=== PATIENT | male | born 1950 | race Caucasian/White ===

== ENCOUNTER 2022-07-29 11:43 | Outpatient (CLI) | payer MEDICARE, OTHER, SELFPAY ==
[2022-07-29 13:27] LABS: Chloride* 104 mmol/L (96-114)
[2022-07-29 13:28] LABS: Basophils Absolute Auto 0.04 K/uL (0.00-0.30); Basophils Percent Auto 0.6 % (0.0-3.0); Eosinophils Absolute Auto 0.19 K/uL (0.00-0.50); Eosinophils Percent Auto 2.9 % (0.0-7.0); Hematocrit 45.7 % (37.0-53.0); Immature Granulocytes Abs Auto 0.01 K/uL (0.00-0.30); Immature Granulocytes Pct Auto 0.2 %; Lymphocytes Percent Auto 19.1 % (20-44); Mean Corpuscular HGB Conc 33 gm/dL (32-36); Mean Corpuscular Hemoglobin 29 pg (26-34); Mean Corpuscular Volume 87 fL (80-100); Monocytes Percent Auto 8.2 % (0.0-11.0); Neutrophils Absolute Auto 4.47 K/uL (1.7-7.0); Platelet Count* 254 K/uL (140-440); Potassium* 4.5 mmol/L (3.6-5.1); RDW Coefficient of Variation % 13.4 % (11.5-15.5); Red Blood Count 5.27 m/uL (4.30-5.90); Sodium* 139 mmol/L (135-149); White Blood Count* 6.48 K/uL (4.50-11.00)
[2022-07-29 13:30] LABS: Carbon Dioxide* 29 mmol/L (20-32); Cholesterol* 213 mg/dL (90-199); Creatinine* 0.9 mg/dL (0.5-1.5); Estimated Glomerular Filt Rate 90 ml/min
[2022-07-29 13:31] LABS: Blood Urea Nitrogen* 23 mg/dL (7-30); Glucose* 121 mg/dL (60-115); HDL Cholesterol* 37 mg/dL (>=40); LDL Cholesterol Calculated 111 mg/dL (<100); Triglycerides* 324 mg/dL (40-149)
[2022-07-29 13:36] LABS: Slide Review Reflex No
[2022-07-29 14:02] LABS: PSA Screen* 2.57 ng/mL (0.10-4.00)
== END 2022-07-29 11:44 | disposition home or self-care (01) ==
PROVIDERS: PCP Family Medicine; Visit Provider Family Medicine
DX: Z01.818 Encounter for other preprocedural examination (principal); I10 Essential (primary) hypertension; E55.9 Vitamin D deficiency, unspecified; E78.5 Hyperlipidemia, unspecified; Z12.5 Encounter for screening for malignant neoplasm of prostate
CPT/HCPCS: 80048; 80061; 84153; 85025

== ENCOUNTER 2022-08-11 08:16 | Day surgery (SDC) | payer MEDICARE, OTHER, SELFPAY ==
--- NOTE | 2022-08-11 08:31 | SUR.PREOP ---
Patient provided home covid negative results to RN.
--- NOTE | 2022-08-11 08:32 | SUR.PREOP ---
The eye drops brought by the patient (Ketorolac and Prednisolone) are examined and I have determined they are labeled by the patient's pharmacy for this patient as prescribed by the surgeon. The bottles are intact, recently obtained and appear to be correct.
[2022-08-11] MEDS: TETRACAINE 0.5% OPHTH 1 DROP EYE-RIGHT ×2 (08:33→08:42)
[2022-08-11 08:36] VITALS: BMI 37.6
[2022-08-11] MEDS: KETOROLAC OPHTH 0.5% 1 DROP EYE-RIGHT ×2 (08:39→08:49)
[2022-08-11 08:45] VITALS: BP 141/80; PULSE 70; RESP 16; TEMP 37; O2SAT 96
[2022-08-11] MEDS: SODIUM CHLORIDE 0.9 % (FLUSH) 10 ML SYRINGE IVF (08:55)
[2022-08-11] MEDS: TETRACAINE 0.5% OPHTH 2 DROP EYE-RIGHT (09:21)
[2022-08-11] MEDS: BALANCED SALT IRRIG SOLN 15 ML EYE-RIGHT (09:26)
--- NOTE | 2022-08-11 09:36 | W.ANESCHARGE ---
Anesthesia Charges Start Date/Time Anesthesia Start Date: 08/11/22 Anesthesia Start Time: 09:18 Stop Date/Time Anesthesia Stop Date: 08/11/22 Anesthesia Stop Time: 09:51 Summary Extremes of Age - Over 70 or under 1: MDA
--- NOTE | 2022-08-11 09:40 | W.ANESCHARGE ---
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
--- NOTE | 2022-08-11 09:54 | W.PM.OPTPROC ---
Procedure Note Date of procedure: 08/11/22 Will [facility] bill your pro fee for this procedure?: Yes Procedure Description: SURGEON: Karma Joshi MD PREOPERATIVE DIAGNOSIS: Nuclear sclerotic cataract, right eye. POSTOPERATIVE DIAGNOSIS: Nuclear sclerotic cataract, right eye. NAME OF OPERATION: Phacoemulsification of cataract with posterior chamber intraocular lens implantation in the right eye. ANESTHESIA: Topical. ESTIMATED BLOOD LOSS: Less than 2 cc. COMPLICATIONS: None. PATHOLOGY SPECIMEN: None. INDICATIONS: See consult note for details. The risks, benefits and alternatives of the procedure were explained to the patient, who elected to proceed and signed informed consent to do so. PROCEDURE: The patient was brought to the pre-holding area where the right eye was identified as the operative eye. I placed my initials above this eye. The patient received eye drops consisting of 0.5% tetracaine, 1% tropicamide, 10% phenylephrine, and 0.5% ketorolac. The patient was then brought to the operating room where the right eye was again identified as the operative eye. The eye was prepped with Betadine and draped in the usual sterile ophthalmic fashion. A #15 super-sharp blade was used to create a paracentesis site. 1% non-preserved intracameral lidocaine was injected into the anterior chamber. Endocoat was injected into the anterior chamber. A 2.4 mm keratome was used to create a three-plane self-sealing incision 1 mm anterior to the temporal limbus. A cystotome was used to create an anterior capsular leaflet. The Utrata forceps were used to extend this to form a continuous curvilinear capsulorrhexis. Hydrodissection was performed. The cataract was removed with phacoemulsification using the [id number] technique. The irrigation and aspiration tip was used to remove the remaining cortex. Healon was injected into the capsular bag. An JEREMI ZCB00 intraocular lens of 21.0 diopters was injected into the capsular bag. The irrigation and aspiration tip was used to remove the remaining viscoelastic. Balanced salt solution on a cannula was used to hydrate the wound, and the wound was found to be watertight. The pupil was noted to be round. DISPOSITION: The patient was taken to the recovery room and discharged to home in stable condition. The patient was instructed to call me or go to the emergency department with any sudden change, including dramatic loss of vision, severe pain in the eye or eyebrow region, nausea, or vomiting. The patient will follow up in the clinic tomorrow morning. Surgeon: Karma Joshi MD
[2022-08-11 09:55] VITALS: BP 151/91; PULSE 74; RESP 16; TEMP 36.7; O2SAT 95
== END 2022-08-11 10:12 | disposition home or self-care (01) ==
PROVIDERS: PCP Family Medicine; Visit Provider Ophthalmology
PROC: (CPT 66984; principal; 2022-08-11 08:15)
DX: H25.11 Age-related nuclear cataract, right eye (principal)
CPT/HCPCS: 66984; 00142; 99100; A9270; J2250; J3010; V2632

== ENCOUNTER 2022-08-25 08:10 | Day surgery (SDC) | payer MEDICARE, OTHER, SELFPAY ==
[2022-08-25] MEDS: KETOROLAC OPHTH 0.5% 1 DROP EYE-LEFT ×2 (08:24→08:30)
[2022-08-25] MEDS: TETRACAINE 0.5% OPHTH 1 DROP EYE-LEFT ×2 (08:24→08:30)
--- NOTE | 2022-08-25 08:37 | SUR.PREOP ---
Patient provided home covid negative results to RN.
[2022-08-25 08:38] VITALS: BMI 37.7
[2022-08-25 08:41] VITALS: BP 130/80; PULSE 70; RESP 16; TEMP 36.9; O2SAT 96
[2022-08-25] MEDS: SODIUM CHLORIDE 0.9 % (FLUSH) 10 ML SYRINGE IVF (08:43)
[2022-08-25] MEDS: TETRACAINE 0.5% OPHTH 2 DROP EYE-BOTH (09:20)
[2022-08-25] MEDS: BALANCED SALT IRRIG SOLN 15 ML EYE-LEFT (09:23)
--- NOTE | 2022-08-25 09:23 | W.ANESCHARGE ---
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
[2022-08-25 09:45] VITALS: BP 139/77; PULSE 67; RESP 16; TEMP 36.7; O2SAT 98
--- NOTE | 2022-08-25 10:30 | P.OPTPRC_ITS ---
Procedure Note Date of procedure: 08/25/22 Will [facility] bill your pro fee for this procedure?: Yes Procedure Description: SURGEON: Karma Joshi MD PREOPERATIVE DIAGNOSIS: Nuclear sclerotic cataract, left eye. POSTOPERATIVE DIAGNOSIS: Nuclear sclerotic cataract, left eye. NAME OF OPERATION: Phacoemulsification of cataract with posterior chamber intraocular lens implantation in the left eye. ANESTHESIA: Topical. ESTIMATED BLOOD LOSS: Less than 2 cc. COMPLICATIONS: None. PATHOLOGY SPECIMEN: None. INDICATIONS: See consult note for details. The risks, benefits and alternatives of the procedure were explained to the patient, who elected to proceed and sign ed informed consent to do so. PROCEDURE: The patient was brought to the pre-holding area where the left eye was identified as the operative eye. I placed my initials above this eye. The patient received eye drops consisting of 0.5% tetracaine, 1% tropicamide, 10% phenylephrine, and 0.5% ketorolac. The patient was then brought to the operating room where the left eye was again identified as the operative eye. The eye was prepped with Betadine and draped in the usual sterile ophthalmic fashion. A #15 super-sharp blade was used to create a paracentesis site. 1% non-preserved intracameral lidocaine was injected into the anterior chamber. Endocoat was injected into the anterior chamber. A 2.4 mm keratome was used to create a three-plane self-sealing incision 1 mm anterior to the temporal limbus. A cystotome was used to create an anterior capsular leaflet. The Utrata forceps were used to extend this to form a continuous curvilinear capsulorrhexis. Hydrodissection was performed. The cataract was removed with phacoemulsification using the [id number]-[id number] technique. The irrigation and aspiration tip was used to remove the remaining cortex. Healon was injected into the capsular bag. An JEREMI ZCB00 intraocular lens of 21.0 diopters was injected into the capsular bag. The irrigation and aspiration tip was used to remove the remaining viscoelastic. Balanced salt solution on a cannula was used to hydrate the wound, and the wound was found to be watertight. The pupil was noted to be round. DISPOSITION: The patient was taken to the recovery room and discharged to home in stable condition. The patient was instructed to call me or go to the emergency department with any sudden change, including dramatic loss of vision, severe pain in the eye or eyebrow region, nausea, or vomiting. The patient will follow up in the clinic tomorrow morning. Surgeon: Karma Joshi MD
== END 2022-08-25 10:08 | disposition home or self-care (01) ==
LOC: OR 08:10
PROVIDERS: PCP Family Medicine; Visit Provider Ophthalmology
PROC: (CPT 66984; principal; 2022-08-25 08:15)
DX: H25.12 Age-related nuclear cataract, left eye (principal)
CPT/HCPCS: 66984; 142; 99100; A9270; J2250; J3010; V2632

== ENCOUNTER 2024-05-25 11:56 | Emergency (ER) | payer MEDICARE, OTHER, SELFPAY ==
[2024-05-25 12:06] VITALS: BP 145/89; PULSE 67; RESP 18; TEMP 36.3; O2SAT 97; BMI 36.9
--- NOTE | 2024-05-25 12:27 | CRLHL7_ITS ---
For Patients: As a result of the Century Cures Act, medical imaging exams and procedure reports are released immediately into your electronic medical record. You may view this report before your referring provider. If you have questions, please contact your health care provider. Indication: constipation x1 week Technique: Three AP views of the abdomen. Comparison: None. Findings: Mild stool burden is seen in the ascending and descending colon. Nonobstructive bowel gas pattern. No large pneumoperitoneum. Visualized lung bases are clear. Mild degenerative changes of the bilateral hips. Mild degenerative changes of the visualized spine. Suture material is seen in the right abdomen. Impression: Mild stool burden is seen in the ascending and descending colon. Nonobstructive bowel gas pattern. Dictated by Santiago Cruz MD @ 05/25/2024 1:22:11 PM (Electronically Signed)
--- OUTSIDE RECORDS SUMMARY | 2024-05-25 12:52 | XMS_ITS | Clinical Summary ---
Author Organization [facility] Address [address] [address] Phone Care Team Providers Care 911 Emergency Services Dispatcher Name Role Phone Nick Myers MD Primary Care Provider Allergies Active Allergy Reactions Criticality Noted Date Comments Lisinopril Cough Low 10/10/2021 Medications losartan (Cozaar) 25 MG tablet Take 25 mg by mouth one time a day. Active citalopram (CeleXA) 20 MG tablet Take by mouth one time a day. Active amphetamine-dex troamphetamine (Adderall) 10 MG tablet Take 10 mg by mouth one time a day. To avoid insomnia, last daily dose should be taken no less than 6 hours before bed. Active ipratropium (Atrovent) 0.03 % nasal spray Instill 2 Sprays nasally four times a day as needed. 11/02/2023 Active losartan-hydroC HLOROthiazide (Hyzaar) 100-25 MG oral tablet Take 1 Tablet by mouth one time a day. 11/04/2023 Active Active Problems No known active problems Social History Tobacco Use Types Packs/Day Years Used Date Smoking Tobacco: Former Cigarettes Smokeless Tobacco: Never EH IP Custom IPV Answer Date Recorded Do you feel UNSAFE in any of your personal relationships with your family members or any other acquaintances? No 2022 Sex and Gender Information Value Date Recorded Sex Assigned at Not on file Legal Sex Male 10:06 AM CDT Gender Identity Not on file Sexual Orientation Not on file Obstetrics History Last Filed Vital Signs Vital Sign Reading Time Taken Comments Blood Pressure 162/102 12/28/2023 1:55 PM CDT Pulse 66 12/28/2023 1:52 PM CDT Temperature 36.9 C (98.4 F) 12/28/2023 1:52 PM CDT Respiratory Rate 17 12/28/2023 1:52 PM CDT Oxygen Saturation 96% 12/28/2023 1:52 PM CDT Inhaled Oxygen Concentration - - Weight 108.9 kg (240 lb) 03/10/2023 11:26 AM CDT Height 175.3 cm (5' 9) 03/10/2023 11:26 AM CDT Body Mass Index 35.44 03/10/2023 11:26 AM CDT Plan of Treatment Health Maintenance Due Date Last Done Comments CT Colonography 1950 Cologuard 1950 Colonoscopy 1950 Colorectal Cancer Screening 1950 FIT/FOBT 1950 MEDICARE AWV 1950 Sigmoidoscopy 1950 PERTUSSIS (Standing Order) 1967 TETANUS (Standing Order) 1967 Shingrix (Zoster recombinant ) vaccine (Standing Order) (1 of 2) 1998 Abdominal Aortic Aneurysm (A AA) Screening 2013 Pneumococcal Vaccine: 65+ yr s (Standing Order) (1 of 1 - PCV) 2013 RSV Vaccination (60+ yrs) (Abrysvo/Arexvy) (1 - 1-dose 75+ series) 2023 COVID-19 Vaccine ( - 2023-2 5 season) 2024 Influenza Vaccine Seasonal (Standing Order) (#1) 2024 HPV Vaccine (Standing Order) Aged Out No longer eligible based on patient's age to complete this topic Hepatitis B Vaccine (Standin g Order) Aged Out No longer eligible b ased on patient's age to complete this topic Insurance [facility] PRIME MEDICARE PART A & B Care Teams 911 Emergency Services Dispatcher Relationship Specialty Start Date End Date Nick Myers MD [facility] [address] [place] [address] PCP - General Family Medicine 03/10/23
--- OUTSIDE RECORDS SUMMARY | 2024-05-25 12:52 | XMS_ITS | Clinical Summary ---
Author Organization [facility] Address [place], [place] [address] Care Team Providers Care Undercoat Sprayer Name Role Phone [facility] Phys Of Primary Care Provider Un available Allergies Active Allergy Reactions Criticality Noted Date Comments Lisinopril Cough 04/07/2011 Medications Medication Sig Dispensed Refills Start Date End Date Status sildenafil (REVATIO) 20 mg tabletIndications:Mal e erectile dysfunction, unspecified Take 2-3 tablets prn 30 tablet 6 02/02/2017 Active citalopram (CELEXA) 20 mg tabletIndications:Dys thymic disorder Take 1 tablet by mouth once daily. 30 tablet 11 08/21/2018 Active losartan (COZAAR) 100 mg tabletIndications:Ess ential hypertension Take 1 tablet by mouth once daily. 90 tablet 3 11/20/2018 Active ipratropium (ATROVENT NASAL) 21 mcg (0.03 %) nasal sprayIndications:PND (post-nasal drip) Inhale 2 Sprays into affected nostril(s) 4 times daily if needed for Rhinitis. [place] dose in each nostril as needed for drainage 30 mL 12 11/02/2023 Active Active Problems Problem Noted Date Diagnosed Date Gastroesophageal reflux disease without esophagi tis 07/31/2018 Controlled substance agreement signed 12/05/2017 EKATERINA (obstructive sleep apnea) 03/21/2015 Overview (03/21/2015): Uses mouth piece Cluster headache 07/28/2012 Colon polyp 2011 Overview (01/20/2017): Colonoscopy 05/2011 polyp repeat in 5 years Colonoscopy 12/2016 polyp repeat in 5 years Vitamin D deficiency 04/07/2011 Umbilical hernia without mention of obstruction or gangrene 11/19/2008 Dysthymic disorder 07/12/2007 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) Overview (11/02/2006): Adult type Mixed hyperlipidemia Backache, unspecified Allergic rhinitis, cause unspecified Essential hypertension Erectile dysfunction Resolved Problems Problem Noted Date Diagnosed Date Resolved Date Male erectile dysfunction, unspecified 02/02/2017 07/25/2018 Unspecified essential hypertension 07/12/2007 05/09/2018 GERD (gastroesophageal reflux disease) 07/31/2018 Immunizations Name Administration Dates Next Due Amb Influenza, Inact (High-d ose) (Flu Clinic Only) 05/06/2016 HepA-HepB (Twinrix) 08/12/2009 Inactivated Polio Vaccine 11/30/1994 Influenza A (H1N1), Inactivated 06/23/2009 Influenza A (H1N1), Inactiva adria (Age >=3 Years) 06/23/2009 Influenza, High-dose Inactivated 05/06/2016,01/26 Influenza, IIV3 (Age 6-35 mos) 04/07/2011,2008,03/17/2009 Influenza, IIV3 (Age >=3 years) 03/09/20 13,03/27/2012,04/07/2011,05/14 Influenza, IIV4 06/12/2015 Meningococcal Vaccine (Menactra) 08/12/2009 Pneumococcal Poly,23-Valent (Pneumovax) 02/22/2014,07/28/2009 Pneumococcal conj 13-Valent (Prevnar 13) 06/12/2015 Td (Age >=7 Years) 07/28/2009,02/21/2004 Tdap 12/18/2012 Yellow Fever 07/15/2009 Zoster (Shingrix-RZV, recombinant) 07/13/2018 Zoster (Zostavax-ZVL, live) 04/07/2011 Family History Medical History Relation Name Comments Good Health Brother 1 Leukemia Brother 2 Allergies Child Diabetes Father Heart failure Father Hyperlipidemia Father Other Father LA Cancer Mother Kidney Hypertension Mother Malig Hyperthermia No Family History Relation Name Status Comments Brother 1 Alive Rh factor issue s Brother 2 (Age 11) Leukemia Child Father (Age 78) CHF Mother (Age 92) Old age Social History Tobacco Use Types Packs/Day Years Used Date Smoking Tobacco: Former Cigarettes 0.5 3 1 967 - 1970 Smokeless Tobacco: Never Tobacco Cessation:Counseling Given: Yes Alcohol Use Standard Drinks/Week Comments Yes 0 (1 standard drink = 0.6 oz pur e alcohol) 2x weekly PHQ-2 Answer Date Recorded PHQ-2 Score 0 08/26/2018 Social Connections Answer Date Recorded Frequency of Communication with Friends and Fami ly Not on file 11/02/2023 Sex and Gender Information Value Date Recorded Sex Assigned at Not on file Gender Identity Not on file Sexual Orientation Not on file Obstetrics History Last Filed Vital Signs Vital Sign Reading Time Taken Comments Blood Pressure 132/80 01/30/2019 10:45 AM CDT Pulse 68 01/30/2019 10:33 AM CDT Temperature 36.8 C (98.3 F) 08/29/2018 1:35 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 Respiratory Rate 14 12/12/2008 3:06 PM CDT Oxygen Saturation 96% 01/30/2019 10:33 AM CDT Inhaled Oxygen Concentration - - Weight 108 kg (238 lb) 01/30/2019 10:33 AM CDT Height 177.2 cm (5' 9.76) 01/30/2019 10:33 AM C DT Body Mass Index 34.38 01/30/2019 10:33 AM CDT Plan of Treatment Health Maintenance Due Date Last Done Comments Hepatitis C screening for ag e 18-79 1966 Medicare Wellness for age 65+ 2013 Zoster (shingles) series for age 50+ (3 of 3) 09/07/2018 07/13/2018, 04/07/2011 Depression screening for age 12+ 08/21/2019 08/21/2018, 07/26/2018, 07/26/2018, Additional history exists BMI (ht and wt on same day) for age 18+ 01/31/2020 01/30/2019, 11/13/2018, 08/29/2018, Additional history exists Colonoscopy through age 75 01/19/202201/19, 01/19/2017, 2011, Additional history exists Lipids for age 45-75 10/06/2022 10/06/2017, 03/21/2015, 05/14/2014, Additional history exists Tetanus booster 12/18/2022 12/18/2012, 0206/2009, 02/21/2004 RSV vaccine for adults or (1 - 1-dose 75+ series) 2023 COVID-19 vaccine series ( season) 2024 04/01/2022, 10/15/2021, 04/17/2021, Additional history exists Influenza for age 65+ 02/26/2024 05/06/2016 , 05/06/2016, 06/12/2015, Additional history exists Tdap Completed 12/18/2012 Pneumococcal series for age 65+ Completed 06/12/2015, 02/22/2014, 07/28/2009 Procedures Procedure Name Priority Date/Time Associated Diagnosis Comments LIPID PANEL W REFLEX MEASURED LDL Routine 10/06/2017 9:52 AM CDT Mixed hyperlipidemia COLONOSCOPY 01/19/2017 10:11 AM CDT from Last 3 Months or Most Recently Relevant to Health Maintenance Results * (ABNORMAL) LIPID PANEL W REFLEX MEASURED LDL (10/06/2017 9:52 AM CDT) CHOLESTEROL,TOTAL 224(H) 100 - 199 mg/dL 10/06/2017 4:33 PM CDT [facility] TRIGLYCERIDES 221(H) <150 mg/dL 10/06/2017 4:33 PM CDT [facility] HDL CHOLESTEROL 39(L) >40 mg/dL 8 4:33 PM CDT [facility] NON-HDL CHOLESTEROL 185(H) <145 mg/dl 10/06/2017 4:33 PM CDT [facility] CHOL/HDL RATIO 5.74(H) <4.50 10/06/2017 4:33 PM CDT [facility] LDL CHOLESTEROL 141(H) <=130 mg/dL 10/06/2017 4:33 PM CDT [facility] PROVIDER ORDERED STATUS RANDOM 10/06/2017 4:33 PM CDT [facility] Blood BLOOD SPECIMEN / Unknown Venipuncture / Unknown 10/06/2017 9:52 AM CDT 10/06/2017 9:52 AM CDT Cole Tate DO CHEMISTRY [facility] [address] [place] [address], [place] * COLONOSCOPY (01/19/2017 10:11 AM CDT) 01/19/2017 10:1 1 AM CDT Narrative Transcriptions Adalid Selby MD - 01/19/2017 12:09 PM CDT Patient Name: Chidi Reina Procedure Date: 01/19/2017 Gender: Male Date of : 1950 Admit Type: Outpatient Procedure: Colonoscopy Proceduralist: Adalid Selby MD , Desirae Fuller (Nurse) Indications/Pre-Op Diagnosis: Surveillance: Personal history ofadenomatous polyps on last colonoscopy 5 years ago, Last colonoscopy: May 2011 Medications: Fentanyl 100 micrograms IV, Midazolam 2 mgIV, The level of sedation administered wasmoderate Procedure Description: The patient had risks, benefits and alternatives explained to andgave informed consent. The patient had a stable cardiopulmonary status and judged an adequate candidate for conscious sedation. The [id number] was passed through the anus and advanced tothe cecum, identified by appendiceal orifice and ileocecal valve. The colonoscopy was performed without difficulty. The patient toleratedthe procedure well. The quality of the bowel preparation was good. The ileocecal valve, appendiceal orifice, and rectum were photographed. Complications: No immediate complications. Estimated Blood Loss & Specimen: Estimated blood loss: none. Specimen collected - Yes and sent to Laboratory Findings: The perianal and digital rectal examinations were normal. The entire examined colon appeared normal. A 5 mm polyp was found in the cecum. The polyp was sessile. The polyp was removed with a hot snare. Resection and retrieval werecomplete. Many small and large-mouthed diverticula were found in the sigmoidcolon and descending colon. The exam was otherwise without abnormality on direct and retroflexion views. Impressions/Post-Op Diagnosis: - The entire examined colon is normal. - One 5 mm polyp in the cecum, removed with a hot snare. Resected and retrieved. - Diverticulosis in the sigmoid colon and in the descending colon. - The examination was otherwise normal on direct and retroflexionviews. Recommendation: - Patient has a contact number available for emergencies. The signsand symptoms of potential delayed complications were discussed with the patient. Return to normal activities tomorrow. Written discharge instructions were provided to the patient. - Resume previous diet. - Continue present medications. - Await pathology results. - Repeat colonoscopy in 5 years for surveillance. Moderate Sedation: Moderate (conscious) sedation was administered by the endoscopy nurse and supervised by the endoscopist. The following parameters were monitored: oxygen saturation, heart rate, respiratory rate, blood pressure, adequacy of pulmonary ventilation and reponse to care. [facility] and nursing notes for moderate sedation details. Total physician intraservice time was 23 minutes. Adalid Selby MD 01/19/2017 12:06:51 PM This report has been signed electronically. Note Initiated On: 01/19/2017 10:11 AM Procedure Code(s): --- Professional --- 86414, Colonoscopy, flexible; with removalof tumor(s), polyp(s), or other lesion(s) bysnare technique Diagnosis Code(s): --- Professional --- Z86.010, Personal history of colonicpolyps D12.0, Benign neoplasm of cecum K57.30, Diverticulosis of large intestine without perforation or abscess withoutbleeding CPT copyright 2016 [employer]. All rights reserved. The codes documented in this report are preliminary and upon family sociologist reviewmay be revised to meet current compliance requirements. Scope In: 11:40:59 AM Scope Withdrawal Time 0 hours 11 minutes 34 seconds Scope Out: 12:01:48 PM Adalid Selby MD PROCEDURE ORD from Last 3 Months or Most Recently Relevant to Health Maintenance Care Teams Undercoat Sprayer Relationship Specialty Start Date End Date Choco Navarro Phys Of PCP - General 07/31/19
--- NOTE | 2024-05-25 13:51 | ED_ITS ---
HPI - General Adult General Chief complaint: Constipation Stated complaint: constipated for last week Time Seen by Provider: 05/25/24 12:00 Source: patient Mode of arrival: ambulatory Limitations: no limitations History of Present Illness HPI narrative: 73-year-old male coming in today concerned about constipation. Patient states that he has not had ?a substantive bowel movement? in a week. When I asked what that means, patient states that he might have small hard bowel movements but it is not normal for him. He denies nausea or vomiting. He has any new in the last 2 days because he is concerned about adding more things to his stomach when it is not moving properly. He is passing gas. He denies any fevers. He has been taking MiraLax for the last [address] without significant output. He complains of feeling lightheaded in the last couple days. Related Data Home Medications ?Medication ?Instructions ?Recorded ?Confirmed multivitamin 1 tab PO QDAY 01/11/23 05/25/24 mv-mn-folic 200 mcg-vit K 15 1 cap PO QDAY 04/26/24 05/25/24 mcg-lutein 5 mg-zeaxanthin 1 mg capsule (PreserVision AREDS 2 Plus Multivit) Previous Rx's ?Medication ?Instructions ?Recorded dextroamphetamine-amphetamine 10 10 mg PO BID #60 tabs 11/29/23 mg tablet (Adderall) losartan 100 1 tab PO DAILY #90 tabs 02/05/24 mg-hydrochlorothiazide 25 mg tablet citalopram 20 mg tablet 20 mg PO DAILY #90 tabs 03/05/24 dextroamphetamine-amphetamine 10 10 mg PO BID #60 tabs 04/17/24 mg tablet (Adderall) dextroamphetamine-amphetamine 10 10 mg PO BID #60 tabs 04/17/24 mg tablet (Adderall) Allergies Allergy/AdvReac Type Severity Reaction Status Date / Time lisinopril AdvReac Mild Cough Verified 05/25/24 12:10 Review of Systems Status of ROS: Reports: 10 or more systems reviewed and unremarkable except as noted in History and below [facility] Medical History Primary hypertension ?I10 - Essential (primary) hypertension (ICD-10) History of colonic polyps ?Z86.010 - Personal history of colonic polyps (ICD-10) Gastroesophageal reflux disease ?K21.9 - Gastro-esophageal reflux disease without esophagitis (ICD-10) Erectile dysfunction ?N52.9 - Male erectile dysfunction, unspecified (ICD-10) Cluster headaches ?G44.009 - Cluster headache syndrome, unspecified, not intractable (ICD-10) Allergic rhinitis ?J30.9 - Allergic rhinitis, unspecified (ICD-10) Vitamin D deficiency (04/07/11) ?E55.9 - Vitamin D deficiency, unspecified (ICD-10) Mixed hyperlipidemia ?E78.2 - Mixed hyperlipidemia (ICD-10) Low testosterone in male ?R79.89 - Other specified abnormal findings of blood chemistry (ICD-10) ADHD, predominantly inattentive type ?F90.0 - Attention-deficit hyperactivity disorder, predominantly inattentive type (ICD-10) Surgical History History of appendectomy (1977) ?Z90.49 - Acquired absence of other specified parts of digestive tract (ICD- 10) History of vasectomy (1982) ?Z98.52 - Vasectomy status (ICD-10) History of umbilical hernia repair (08/14/18) ?Z98.890 - Other specified postprocedural states (ICD-10) ?Z87.19 - Personal history of other diseases of the digestive system (ICD-10) 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) ?Z96.612 - Presence of left artificial shoulder joint (ICD-10) H/O left knee surgery (02/01/19) ?Z98.890 - Other specified postprocedural states (ICD-10) 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) ?Z96.652 - Presence of left artificial knee joint (ICD-10) Social History What is your current living situation?: I presently have a place to live Problems where you live: no known problems In the past 12 months, utilities in danger of being shut off: no In the past 12 mos, have been you worried that your food would run out before you had money to buy more?: never true In the past 12 mos, the food you bought just didn't last and you didn't have money to buy more?: never true Smoking Status: Former smoker How often do you have a drink containing alcohol: 2-4 times a month AUDIT-C Alcohol total score: 2 Non-prescribed substance use: denies use Caffeine: Yes How often does anyone, including family, friends and others, physically hurt you : never How often does anyone, including family, friends and others, insult or talk down to you: never How often does anyone, including family, friends and others, threaten you with harm: never How often does anyone, including family, friends and others, scream or curse at you: never Exam Narrative: Exam Narrative: Overweight, well-developed patient in no acute distress. Alert and oriented. Answers questions appropriately. Mood and affect are appropriate. Thoughts are goal oriented and rational. No tangential or magical thinking noted. Patient speaks in full sentences without needing to catch his breath. HEENT: Normocephalic atraumatic. Pupils are equally round reactive to light. Extraocular muscles are intact. Conjunctivae are moist without any icterus noted. Moist mucous membranes. Cardiovascular: Heart is regular rate and rhythm. Lungs: Clear to auscultation bilaterally. Patient takes deep breaths without any discomfort. Abdomen: Soft and nontender nondistended with normal bowel sounds. No guarding or rebound. Difficult to assess for organomegaly secondary to body habitus. Const: Vital Signs, click to edit/add: Vital Signs - 24 hr 05/25/24 12:06 Temperature 97.4 F L Pulse Rate [Right Pulse Oximeter] 67 Respiratory Rate 18 Blood Pressure [Le ft Upper Arm] 145/89 H Pulse Oximetry 97 Oxygen Delivery Me thod Room Air Course Course ED Course: Abdominal x-ray shows mild stool burden. Vital Signs Vital signs: Initial Vital Signs Temperature 97.4 F L 05/25/24 12:06 Temperature Source Temporal Artery Scan 05/25/24 12:06 Pulse Rate 67 05/25/24 12:06 Respiratory Rate 18 05/25/24 12:06 Blood Pressure 145/89 H 05/25/24 12:06 Blood Pressure Mean 107 H 05/25/24 12:06 Blood Pressure Position Sitting 05/25/24 12:06 Pulse Oximetry 97 05/25/24 12:06 Oxygen Delivery Method Room Air 05/25/24 12:06 Vital Signs Temperature 97.4 F L 05/25/24 12:06 Pulse Rate 67 05/25/24 12:06 Respiratory Rate 18 05/25/24 12:06 Blood Pressure 145/89 H 05/25/24 12:06 Pulse Oximetry 97 05/25/24 12:06 Oxygen Delivery Method Room Air 05/25/24 12:06 Temperature 97.4 F L 05/25/24 12:06 Pulse Rate 67 05/25/24 12:06 Respiratory Rate 18 05/25/24 12:06 Blood Pressure 145/89 H 05/25/24 12:06 Pulse Oximetry 97 05/25/24 12:06 Oxygen Delivery Method Room Air 05/25/24 12:06 Medical Decision Making MDM Narrative Medical decision making narrative: 73-year-old male with mild constipation. We discussed continuing MiraLax up to 2 scoops per day, Dulcolax nothing sent if needed. Increasing water intake. Recommend eating. Follow-up with primary care as needed. Imaging Data Abdominal x-ray: Attestation: I have reviewed the pertinent imaging results. Radiologist's impression: Technique: Three AP views of the abdomen. Comparison: None. Findings: Mild stool burden is seen in the ascending and descending colon. Nonobstructive bowel gas pattern. No large pneumoperitoneum. Visualized lung bases are clear. Mild degenerative changes of the bilateral hips. Mild degenerative changes of the visualized spine. Suture material is seen in the right abdomen. Impression: Mild stool burden is seen in the ascending and descending colon. Nonobstructive bowel gas pattern. Discharge Plan Discharge Clinical Impression: Constipation Patient Disposition: Home, Self-Care Condition: Stable Instructions: Constipation (ED) Additional Instructions: Recommend continuing with MiraLax 1-2 scoops daily, increase water intake and Dulcolax as directed. You should be eating normally daily, do not stop eating. Follow-up with primary care as needed. At this time, it does not appear that you need to do enemas. Refrain from doing this unless you start to develop abdominal discomfort. Prescriptions: No Action dextroamphetamine-amphetamine [Adderall] 10 mg tablet 10 mg PO BID Qty: 60 0RF Rx Instructions: administer doses at least 4-6 hours apart multivitamin Tablet 1 tab PO QDAY PreserVision AREDS 2 Plus MV 200 mcg-15 mcg- 5 mg-1 mg capsule 1 cap PO QDAY losartan-hydrochlorothiazide 100-25 mg tablet 1 tab PO DAILY Qty: 90 3RF citalopram 20 mg tablet 20 mg PO DAILY Qty: 90 1RF dextroamphetamine-amphetamine [Adderall] 10 mg tablet 10 mg PO BID Qty: 60 0RF Rx Instructions: administer doses at least 4-6 hours apart dextroamphetamine-amphetamine [Adderall] 10 mg tablet 10 mg PO BID Qty: 60 0RF Rx Instructions: administer doses at least 4-6 hours apart Follow Up/Referrals: Nick Myers MD [Primary Care Provider] - Stand Alone Forms: [email or web address] [employer] Info Instructions
== END 2024-05-25 14:00 | disposition home or self-care (01) ==
PROVIDERS: Emergency Provider Family Medicine; PCP Family Medicine
DX: K59.00 Constipation, unspecified (principal)
CPT/HCPCS: 74019; 99283; 99284

== ENCOUNTER 2024-10-17 09:31 | Outpatient (CLI) | payer MEDICARE, OTHER, SELFPAY | END 2024-10-17 09:32 | disposition home or self-care (01) | PROVIDERS: PCP Family Medicine; Visit Provider Family Medicine | DX: I10 Essential (primary) hypertension (principal); R79.89 Other specified abnormal findings of blood chemistry; E55.9 Vitamin D deficiency, unspecified; E78.2 Mixed hyperlipidemia; Z12.5 Encounter for screening for malignant neoplasm of prostate | CPT/HCPCS: 80048; 80061; 85025; G0103 ==